=== PATIENT | male | born 2000 | race African-American/Black ===

== ENCOUNTER 2021-11-12 07:37 | Emergency (ER) | payer OTHER ==
[~2021-11-12] VITALS: Ht 182.9 cm; Wt 84.1 kg
[2021-11-12] MEDS ORDERED: ONDANSETRON 4MG ORAL DISINTEGRATING TAB PO ONE (08:30)
[2021-11-12] MEDS ORDERED: ONDA4TAB6 PO (09:36)
[2021-11-12 09:44] VITALS: BP 125/72
== END 2021-11-12 09:42 | disposition home or self-care (01) ==
LOC: M ED 07:37
DX: R11.10 Vomiting, unspecified (principal); M54.50 Low back pain, unspecified

== ENCOUNTER 2023-08-30 11:38 | Emergency (ER) | payer OTHER ==
[~2023-08-30] VITALS: Ht 182.9 cm; Wt 92.1 kg
[~2023-08-30 11:38] MED LIST: ONDA4TAB6 PO
[2023-08-30 12:31] LABS: BASO # 0.1 10^3/uL (0.0-0.2); BASO % 0.9 % (0.0-1.0); EOS # 0.3 10^3/uL (0.0-0.5); EOS % 5.5 % (0.0-3.0); HEMATOCRIT 44.1 % (42.0-52.0); HEMOGLOBIN 14.8 g/dl (13.5-17.5); LYMPH # 1.6 10^3/uL (1.5-5.0); LYMPH % 27.9 % (24.0-44.0); MEAN CORPUSCULAR HGB CONC 33.6 g/dl (32.0-36.5); MEAN CORPUSCULAR VOLUME 92.3 fl (80.0-96.0); MONO # 0.5 10^3/uL (0.0-0.8); MONO % 8.5 % (2.0-8.0); NEUTROPHILS # 3.3 10^3/uL (1.5-8.5); NEUTROPHILS % 56.9 % (36.0-66.0); PLATELET COUNT, AUTOMATED 234 10^3/uL (150-450); RED BLOOD COUNT 4.78 10^6/uL (4.30-6.10); WHITE BLOOD COUNT 5.8 10^3/uL (4.0-10.0)
[2023-08-30] MEDS: NS 1,000 ML IV ONE (12:35)
[2023-08-30 12:53] LABS: LIPASE 26 U/L (12-53)
[2023-08-30 12:55] LABS: ALBUMIN 3.4 G/DL (3.2-5.2); ALKALINE PHOSPHATASE 57 U/L (46-116); ALT/SGPT 24 U/L (7.0-40); AST/SGOT 28 U/L (<34); BILIRUBIN,DIRECT < 0.1 MG/DL (<0.4); BILIRUBIN,TOTAL 0.3 MG/DL (0.3-1.2); CPK CREATINE PHOSPHOKINASE 142 U/L (46-171); POTASSIUM SERUM 4.3 MMOL/L (3.5-5.1); TOTAL PROTEIN 7.2 G/DL (5.7-8.2)
[2023-08-30] MEDS ORDERED: BACT800T5 PO (14:02)
[2023-08-30] MEDS: BACTRIM 160MG/800MG DS TAB PO ONE (14:05)
[2023-08-30 14:13] VITALS: BP 140/87; TEMP 97.2; O2SAT 100
== END 2023-08-30 14:14 | disposition home or self-care (01) ==
LOC: M ED 11:38
DX: N30.01 Acute cystitis with hematuria (principal); F17.200 Nicotine dependence, unspecified, uncomplicated; Z79.2 Long term (current) use of antibiotics

== ENCOUNTER 2023-12-19 08:24 | Emergency (ER) | payer OTHER ==
[~2023-12-19] VITALS: Ht 182.9 cm; Wt 94.3 kg
[~2023-12-19 08:24] MED LIST changes: +BACT800T5 PO; +ONDA-282 PO; -ONDA4TAB6 PO
[2023-12-19 09:21] LABS: BASO % 0.8 % (0.0-1.0); EOS # 0.2 10^3/uL (0.0-0.5); EOS % 3.7 % (0.0-3.0); HEMATOCRIT 44.5 % (42.0-52.0); HEMOGLOBIN 14.7 g/dl (13.5-17.5); LYMPH # 1.7 10^3/uL (1.5-5.0); LYMPH % 35.3 % (24.0-44.0); MEAN CORPUSCULAR HEMOGLOBIN 30.5 pg (27.0-33.0); MEAN CORPUSCULAR VOLUME 92.3 fl (80.0-96.0); MONO # 0.4 10^3/uL (0.0-0.8); MONO % 8.9 % (2.0-8.0); NEUTROPHILS # 2.5 10^3/uL (1.5-8.5); NEUTROPHILS % 51.3 % (36.0-66.0); PLATELET COUNT, AUTOMATED 229 10^3/uL (150-450); RED BLOOD COUNT 4.82 10^6/uL (4.30-6.10); WHITE BLOOD COUNT 4.8 10^3/uL (4.0-10.0)
[2023-12-19 09:50] LABS: BLOOD UREA NITROGEN 17 MG/DL (9-23); CALCIUM LEVEL 9.3 MG/DL (8.5-10.1); CARBON DIOXIDE LEVEL 26 MMOL/L (20-31); CHLORIDE LEVEL 107 MMOL/L (98-107); CREATININE FOR GFR 1.06 MG/DL (0.70-1.30); GLOMERULAR FILTRATION RATE > 60.0 (>60); GLUCOSE, FASTING 115 MG/DL (60-100); POTASSIUM SERUM 4.3 MMOL/L (3.5-5.1); SODIUM LEVEL 139 MMOL/L (136-145)
[2023-12-19 11:53] LABS: Trichomonas vaginalis (AMP) NOT DETECTED (NEGATIVE)
[2023-12-19 12:16] LABS: GC DNA AMPLIFICATION NEGATIVE (NEGATIVE)
[2023-12-19] MEDS ORDERED: DOXY-323 PO (12:19)
[2023-12-19 14:16] VITALS: BP 133/77; TEMP 98.4; O2SAT 99
== END 2023-12-19 14:18 | disposition home or self-care (01) ==
LOC: M ED 08:24
DX: A74.9 Chlamydial infection, unspecified (principal); F17.200 Nicotine dependence, unspecified, uncomplicated; Z79.2 Long term (current) use of antibiotics

== ENCOUNTER 2024-01-09 10:13 | Emergency (ER) | payer OTHER ==
[~2024-01-09] VITALS: Ht 182.9 cm; Wt 89.6 kg
[2024-01-09 10:13] VITALS: BP 126/76; TEMP 97.6; O2SAT 96
[~2024-01-09 10:13] MED LIST changes: +DOXY-323 PO
[2024-01-09 11:59] LABS: BASO % 0.3 % (0.0-1.0); HEMATOCRIT 47.7 % (42.0-52.0); HEMOGLOBIN 16.2 g/dl (13.5-17.5); LYMPH # 0.9 10^3/uL (1.5-5.0); LYMPH % 13.5 % (24.0-44.0); MEAN CORPUSCULAR HEMOGLOBIN 30.9 pg (27.0-33.0); MONO # 0.4 10^3/uL (0.0-0.8); MONO % 5.6 % (2.0-8.0); NEUTROPHILS # 5.2 10^3/uL (1.5-8.5); NEUTROPHILS % 80.4 % (36.0-66.0); PLATELET COUNT, AUTOMATED 278 10^3/uL (150-450); RED BLOOD COUNT 5.24 10^6/uL (4.30-6.10); WHITE BLOOD COUNT 6.4 10^3/uL (4.0-10.0)
[2024-01-09] MEDS: NS 1,000 ML IV ONE (12:21)
[2024-01-09] MEDS: ONDANSETRON 4MG 2ML VIAL IV ONE (12:21)
[2024-01-09] MEDS: MORPHINE 4 MG/ML 1ML VIAL IV ONE (12:22)
[2024-01-09 12:30] LABS: LIPASE 22 U/L (12-53)
[2024-01-09 12:32] LABS: ALBUMIN 4.7 G/DL (3.2-5.2); ALKALINE PHOSPHATASE 73 U/L (46-116); ALT/SGPT 28 U/L (7.0-40); AST/SGOT 21 U/L (<34); BILIRUBIN,DIRECT 0.2 MG/DL (<0.4); BILIRUBIN,TOTAL 0.7 MG/DL (0.3-1.2); BLOOD UREA NITROGEN 16 MG/DL (9-23); CALCIUM LEVEL 9.9 MG/DL (8.5-10.1); CARBON DIOXIDE LEVEL 25 MMOL/L (20-31); CHLORIDE LEVEL 103 MMOL/L (98-107); CREATININE FOR GFR 1.18 MG/DL (0.70-1.30); GLOMERULAR FILTRATION RATE > 60.0 (>60); GLUCOSE, FASTING 90 MG/DL (60-100); SODIUM LEVEL 136 MMOL/L (136-145); TOTAL PROTEIN 9.1 G/DL (5.7-8.2)
[2024-01-09] MEDS: GASTROGRAFIN SOLUTION 30ML PO SCH (12:46)
[2024-01-09] MEDS ORDERED: ISOVUE-370 76% 100ML VIAL As Ordered ONE (14:24)
[2024-01-09] MEDS ORDERED: ONDA-282 PO (14:53)
== END 2024-01-09 15:09 | disposition home or self-care (01) ==
LOC: M ED 10:13
DX: R10.9 Unspecified abdominal pain (principal); R19.7 Diarrhea, unspecified; K42.9 Umbilical hernia without obstruction or gangrene; F17.200 Nicotine dependence, unspecified, uncomplicated; Z79.83 Long term (current) use of bisphosphonates; Z79.899 Other long term (current) drug therapy
CPT/HCPCS: 74177; 80048; 80076; 81001; 83690; 85025; 93041; 96361; 96374; 96375; 99284; J2405; Q9963; Q9967

== ENCOUNTER 2024-01-17 08:56 | Emergency (ER) | payer OTHER ==
[~2024-01-17] VITALS: Ht 182.9 cm; Wt 88.7 kg
[2024-01-17] MEDS: KETOROLAC 30 MG/ML 1ML VIAL IV ONE (11:59)
[2024-01-17] MEDS: ONDANSETRON 4MG 2ML VIAL IV ONE (11:59)
[2024-01-17] MEDS: NS 1,000 ML IV ONE (11:59)
[2024-01-17 12:11] LABS: BASO % 0.7 % (0.0-1.0); EOS # 0.1 10^3/uL (0.0-0.5); EOS % 2.1 % (0.0-3.0); HEMOGLOBIN 15.2 g/dl (13.5-17.5); LYMPH # 1.6 10^3/uL (1.5-5.0); LYMPH % 26.8 % (24.0-44.0); MEAN CORPUSCULAR HGB CONC 33.8 g/dl (32.0-36.5); MEAN CORPUSCULAR VOLUME 91.6 fl (80.0-96.0); MONO # 0.4 10^3/uL (0.0-0.8); MONO % 6.6 % (2.0-8.0); NEUTROPHILS # 3.9 10^3/uL (1.5-8.5); NEUTROPHILS % 63.6 % (36.0-66.0); PLATELET COUNT, AUTOMATED 247 10^3/uL (150-450); RED BLOOD COUNT 4.91 10^6/uL (4.30-6.10); WHITE BLOOD COUNT 6.1 10^3/uL (4.0-10.0)
[2024-01-17 12:33] LABS: LIPASE 21 U/L (12-53)
[2024-01-17 12:35] LABS: ALBUMIN 4.1 G/DL (3.2-5.2); ALKALINE PHOSPHATASE 63 U/L (46-116); ALT/SGPT 29 U/L (7.0-40); AST/SGOT 32 U/L (<34); BILIRUBIN,DIRECT 0.1 MG/DL (<0.4); BILIRUBIN,TOTAL 0.5 MG/DL (0.3-1.2); BLOOD UREA NITROGEN 10 MG/DL (9-23); CALCIUM LEVEL 9.4 MG/DL (8.5-10.1); CARBON DIOXIDE LEVEL 29 MMOL/L (20-31); CHLORIDE LEVEL 105 MMOL/L (98-107); CREATININE FOR GFR 1.04 MG/DL (0.70-1.30); GLOMERULAR FILTRATION RATE > 60.0 (>60); GLUCOSE, FASTING 91 MG/DL (60-100); POTASSIUM SERUM 4.4 MMOL/L (3.5-5.1); SODIUM LEVEL 140 MMOL/L (136-145); TOTAL PROTEIN 7.9 G/DL (5.7-8.2)
[2024-01-17 12:50] VITALS: BP 124/70; TEMP 98.6; O2SAT 100
[2024-01-17] MEDS: PANTOPRAZOLE 40MG VIAL IV ONE (13:14)
== END 2024-01-17 13:43 | disposition home or self-care (01) ==
LOC: M ED 08:56
DX: K52.9 Noninfective gastroenteritis and colitis, unspecified (principal); B34.8 Other viral infections of unspecified site; M54.50 Low back pain, unspecified
CPT/HCPCS: 74176; 80048; 80076; 83690; 85025; 96361; 96374; 96375; 99284; J1885; J2405; J2470